=== PATIENT | female | born 1935 | race Caucasian/White ===

== ENCOUNTER → 2024-07-24 07:50 | Outpatient (BNVA) | payer MEDICARE, BC, SELFPAY | PROVIDERS: PCP Family Medicine; Referring Provider Family Medicine; Visit Provider Psychiatry & Neurology Neurology | DX: R41.9 Unspecified symptoms and signs involving cognitive functions and awareness (principal); R41.3 Other amnesia; G45.9 Transient cerebral ischemic attack, unspecified; E55.9 Vitamin D deficiency, unspecified; R41.0 Disorientation, unspecified | CPT/HCPCS: 36415; 82565; 83735; 84520; 99203 ==

== ENCOUNTER 2024-08-05 11:30 | Outpatient (CLI) | payer MEDICARE, BC, SELFPAY ==
--- NOTE | 2024-08-05 12:15 | MR_ITS ---
WS: [id number] MRI HEAD WITH CONTRAST TECHNIQUE: Sagittal T1, T2 axial, T2 axial FLAIR, axial susceptibility weighted imaging, axial diffusion weighted images, and coronal T2 images were obtained. Pre and post-T1 axial and post T1 coronal images. ADC and FSPGR images. CLINICAL INFORMATION: R41.3 - Other amnesia COMPARISON: None. FINDINGS: No evidence of restricted diffusion to suggest acute ischemia. Ventricular system and basilar cisterns are patent. Mild small vessel changes. Moderate parenchymal volume loss. Normal posterior fossa. 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 Normal vascular flow voids at the skull base. Chronic CSF attenuation subdural hygromas overlying the LEFT greater than RIGHT parietal convexities dorsally at the vertex. Mild underlying mass effect on the brain parenchyma. No blood products. Paranasal sinuses are well aerated. Mastoid air cells are well aerated. Normal posterior nasopharynx. No hemosiderin on susceptibility weighted images. Normal optic chiasm and pituitary infundibulum. Mild symmetric atrophy temporal lobes and hippocampal formations. No abnormal gadolinium enhancement. Normal dural venous sinuses. MR/MR head wo/w con [id number] IMPRESSION: 1. No evidence of restricted diffusion to suggest acute ischemia. 2. Mild small vessel changes with moderate parenchymal volume loss. 3. 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 Mild underlying mass effect on the cortex. LEF T subdural hygroma measures 16 mm in transverse dimension and follows CSF on al l sequences. 4. No hemosiderin on the susceptibility weighted images. 5. Parenchymal volume loss is worse involving the bilateral parietal convexiti es 6. Moderate atrophy involving the mesial temporal lobes and hippocampal format ions.
[2024-08-05] MEDS: gadobenate dimeglumine 20 mL vial 11 ML IV (12:31)
== END 2024-08-05 11:31 | disposition home or self-care (01) ==
PROVIDERS: PCP Family Medicine; Visit Provider Psychiatry & Neurology Neurology
DX: R41.3 Other amnesia (principal); G45.9 Transient cerebral ischemic attack, unspecified; R93.0 Abnormal findings on diagnostic imaging of skull and head, not elsewhere classified; G96.08 Other cranial cerebrospinal fluid leak; G31.89 Other specified degenerative diseases of nervous system
CPT/HCPCS: 70553; A9577